=== PATIENT | female | born 1960 | race American Indian/Alaskan Native ===

== ENCOUNTER 2017-08-07 13:18 | Emergency (ER) | payer BC ==
[2017-08-07 13:43] VITALS: BP 173/92
--- NOTE | 2017-08-07 15:54 | Emergency Department Report ---
ED Eye Problem HPI - General Chief complaint: Eye Problems Stated complaint: PINK EYE Time Seen by Provider: 08/07/17 15:52 Source: patient Mode of arrival: Ambulatory Limitations: No Limitations - History of Present Illness Initial comments: 57-year-old female past medical history diabetes hypertension presents with complaint of left eye discomfort and irritation for approximately 4 days. Slight throbbing and discharge reported by patient with slightly blurry vision. Patient denies any direct trauma to left eye. Denies using contact lenses or glasses. Denies any fevers chills or any other symptoms. Denies nausea vomiting or headache. MD chief complaint: eye pain Onset/Timin -: days(s) Location: left eye Eye Symptoms: pain, discharge Severity: mild Severity scale (0 -10): 4 If Pain, Quality: throbbing Consistency: intermittent Associated Symptoms: none Treatments Prior to Arrival: none - Related Data Patient Tetanus UTD: Yes Previous Rx's Medication Instructions Recorded Last Taken Type Ibuprofen [Motrin] 800 mg PO Q8HR PRN #20 tablet 08/07/17 Unknown Rx Tobramycin 0.3% [Tobrex] 1 drop OS Q4H #1 bottle 08/07/17 Unknown Rx Allergies Allergy/AdvReac Type Severity Reaction Status Date / Time No Known Allergies Allergy Verified 08/07/17 13:39 ED Review of Systems ROS: Stated complaint: PINK EYE Other details as noted in HPI Constitutional: denies: chills, fever Eyes: eye pain. denies: eye discharge, vision change ENT: denies: ear pain, throat pain Respiratory: denies: cough, shortness of breath, wheezing Cardiovascular: denies: chest pain, palpitations Endocrine: no symptoms reported Gastrointestinal: denies: abdominal pain, nausea, diarrhea Genitourinary: denies: urgency, dysuria, discharge Musculoskeletal: denies: back pain, joint swelling, arthralgia Skin: denies: rash, lesions Neurological: denies: headache, weakness, paresthesias Psychiatric: denies: anxiety, depression Hematological/Lymphatic: denies: easy bleeding, easy bruising ED Past Medical Hx - Past Medical History Previous Medical History?: No - Surgical History Past Surgical History?: No - Social History Smoking Status: Never Smoker Substance Use Type: None - Medications Home Medications: Home Medications Medication Instructions Recorded Confirmed Last Taken Type Ibuprofen [Motrin] 800 mg PO Q8HR PRN #20 tablet 08/07/17 Unknown Rx Tobramycin 0.3% [Tobrex] 1 drop OS Q4H #1 bottle 08/07/17 Unknown Rx ED Physical Exam - General Limitations: No Limitations General appearance: alert, in no apparent distress - Head Head exam: Present: atraumatic, normocephalic - Eye Eye exam: Present: normal appearance, PERRL, EOMI - Expanded Eye Exam Expanded Pupils: Regular, Round: Bilateral, Reactive: Bilateral Sclera/Conjunctival: Normal Inspection: Right, Injection: Left Anterior chamber: Normal Inspection: Bilateral Visual acuity (R) = 20/: 30 Visual acuity (L) = 20/: 30 IOP (L) in mmH IOP measured with: Tonopen - ENT ENT exam: Present: mucous membranes moist - Neck Neck exam: Present: normal inspection - Respiratory Respiratory exam: Present: normal lung sounds bilaterally. Absent: respiratory distress - Cardiovascular Cardiovascular Exam: Present: regular rate, normal rhythm. Absent: systolic murmur, diastolic murmur, rubs, gallop - GI/Abdominal GI/Abdominal exam: Present: soft, normal bowel sounds - Extremities Exam Extremities exam: Present: normal inspection - Back Exam Back exam: Present: normal inspection - Neurological Exam Neurological exam: Present: alert, oriented X3 - Psychiatric Psychiatric exam: Present: normal affect, normal mood - Skin Skin exam: Present: warm, dry, intact, normal color. Absent: rash ED Course Vital Signs 08/07/17 13:40 Temperature 98.4 F Pulse Rate 74 Respiratory 16 Rate Blood Pressure 173/92 O2 Sat by Pulse 97 Oximetry ED Medical Decision Making - Medical Decision Making A/P: Conjunctivitis left eye 1-tobramycin drops, Motrin when necessary 2-follow-up with ophthalmology 3- acuity 20/30 both eyes, 20/30 left eye, 20/30 right eye. IOP 15 left eye Critical care attestation.: If time is entered above; I have spent that time in minutes in the direct care of this critically ill patient, excluding procedure time. ED Disposition Clinical Impression: Conjunctivitis Qualifiers: Conjunctivitis type: acute Acute conjunctivitis type: unspecified Laterality: left Qualified Code(s): H10.32 - Unspecified acute conjunctivitis, left eye Disposition: - TO HOME OR SELFCARE Is pt being admited?: No Does the pt Need Aspirin: No Condition: Stable Instructions: Conjunctivitis (ED) Prescriptions: Ibuprofen [Motrin] 800 mg PO Q8HR PRN #20 tablet PRN Reason: Pain Tobramycin 0.3% [Tobrex] 1 drop OS Q4H #1 bottle Referrals: ROSITA KUO MD [Primary Care Provider] - 3-5 Days HENRY ARNOLD DO [Staff Physician] - 3-5 Days CASI GALVIN MD [Staff Physician] - 3-5 Days Time of Disposition: 16:06
== END 2017-08-07 16:13 | disposition home or self-care (01) ==
LOC: ED 13:18
DX: H10.32 Unspecified acute conjunctivitis, left eye (principal); I10 Essential (primary) hypertension; E11.9 Type 2 diabetes mellitus without complications
CPT/HCPCS: 99282

== ENCOUNTER 2018-09-29 10:39 | Day surgery (SDC) | payer BC ==
[~2018-09-29 10:39] MED LIST: NACL 0.9% 1000 ML 1,000 ML IV SCH
[2018-09-29] MEDS ORDERED: XYLOCAINE MPF 2% ONE (11:00)
[2018-09-29] MEDS ORDERED: DIPRIVAN 10 MG/ML IV ONE ×2 (11:16)
[2018-09-29] MEDS ORDERED: WATER FOR IRRIG STERILE IR ONE (11:19)
--- NOTE | 2018-09-29 11:33 | Anesthesia Consultation ---
Anesthesia Consult and Med Hx Date of service: 09/29/18 - Airway Anesthetic Teeth Evaluation: Dentures (upper), Partials (bottom) ROM Head & Neck: Adequate Mental/Hyoid Distance: Adequate Mallampati Class: Class II Intubation Access Assessment: Probably Good - Pre-Operative Health Status ASA Pre-Surgery Classification: ASA3 - Pulmonary Hx Smoking: Yes - Cardiovascular System Hx Hypertension: Yes - Endocrine Hx Non-Insulin Dependent Diabetes: Yes - Other Systems Hx Obesity: Yes (BMI 34.5)
--- NOTE | 2018-09-29 11:34 | Anesthesia Day of Surgery ---
Anesthesia Day of Surgery - Day of Surgery Patient Examined: Yes Patient H&P Reviewed: Yes Patient is NPO: Yes
--- NOTE | 2018-09-29 12:03 | Post Operative Note ---
Date of procedure: 09/29/18 Pre-op diagnosis: Screening colonoscopy Post-op diagnosis: other (colon polyp, internal hemorrhoids) Findings: 1. small colon polyp 2. Internal hemorrhoids Procedure: Colonoscopy with biopsy Anesthesia: MAC Surgeon: DILEEP MORALES Estimated blood loss: minimal Pathology: list (transverse colon polyp) Specimen disposition: to lab Condition: stable Disposition: same day
--- NOTE | 2018-09-29 12:05 | Operative Report ---
Operative Report Operative Report: Colonoscopy Procedure Note with Biopsy Date of procedure: 09/29/2018 Endoscopist: Hipolito Garces Pre-op diagnosis: Screening for colorectal cancer Post-op diagnosis: Small colon polyp, internal hemorrhoids Anesthesia: MAC Complications: No immediate complications Estimated blood loss: minimal Procedure: After consent was obtained, the patient was placed in the left lateral decubitus position. The olympus colonoscope was inserted into the patient's rectum under direct vision, and advanced to the cecum without difficulty. The patient tolerated the procedure well. The views of the mucosa were good. The quality of prep was good. The patient's vital signs were monitored continuously throughout the procedure. Findings: There was an ~1-2 mm sessile polyp in the transverse colon. The polyp was removed and retrieved with cold biopsy forceps. Internal hemorrhoids were visualized on retro-flexion view. Otherwise, the colon appeared normal. Impression: 1. Small colon polyp removed with cold biopsy forceps 2. Internal hemorrhoids Recommendations: -follow-up pathology -repeat colonoscopy for surveillance in 5 years
--- NOTE | 2018-09-29 12:34 | Short Stay Summary ---
Short Stay Documentation Date of service: 09/29/18 Narrative H&P: The patient presents for screening colonoscopy. Denies lower gi complaints at this time. - History Past Medical History: other (no changes from clinic H&P) Past Surgical History: Other (no changes) Social history: no significant social history - Allergies and Medications Current Medications: Allergies No Known Allergies Allergy (Verified 08/07/17 13:39) Home Medications Medication Instructions Recorded Confirmed Last Taken Type Vitamin D2 50,000 units PO DAILY 09/27/18 09/29/18 09/27/18 History amLODIPine 10 mg PO DAILY 09/27/18 09/29/18 09/29/18 History metFORMIN 1,000 mg PO BID 09/27/18 09/29/18 09/28/18 History Active Medications Sodium Chloride (Nacl 0.9% 1000 Ml) 1,000 mls @ 50 mls/hr IV DIRECT LU Last Admin: 09/29/18 11:32 Dose: 50 mls/hr Documented by: - Physical exam General appearance: no acute distress Heart: Regular rate, Normal S1, Normal S2 Gastrointestinal: normal Extremities: No edema, Full ROM - Brief post op/procedure progress note Date of procedure: 09/29/18 Pre-op diagnosis: screening colonscopy Post-op diagnosis: other (colon polyp) Procedure: colonoscopy with biopsy Anesthesia: MAC Findings: 1. colon polyp x 1 Estimated blood loss: minimal Pathology: list (transverse colon polyp) Specimen disposition: to lab Condition: stable - Disposition Condition at discharge: Good Disposition: DC-01 TO HOME OR SELFCARE Short Stay Discharge Plan Follow up with: AMANDA ENCISO MD [Primary Care Provider] - 7 Days
[2018-09-29 12:58] VITALS: BP 137/69
== END 2018-09-29 10:40 | disposition home or self-care (01) ==
LOC: GIO 10:39
PROVIDERS: ATTEND Internal Medicine Gastroenterology
DX: Z12.11 Encounter for screening for malignant neoplasm of colon (principal); K63.5 Polyp of colon; K63.89 Other specified diseases of intestine; K64.8 Other hemorrhoids; F17.210 Nicotine dependence, cigarettes, uncomplicated; I10 Essential (primary) hypertension; E11.9 Type 2 diabetes mellitus without complications; E66.9 Obesity, unspecified; Z98.51 Tubal ligation status; Z79.84 Long term (current) use of oral hypoglycemic drugs; Z98.890 Other specified postprocedural states
CPT/HCPCS: 45380; 82962; 88305; J2704; J7030

== ENCOUNTER 2018-11-28 16:37 | Emergency (ER) | payer BC ==
--- NOTE | 2018-11-28 16:45 | Event Note ---
ED Screening Note Date of service: 11/28/18 Time: 16:43 ED Screening Note: 58 y o f presents with right thumb swelling and pain x 1 week states getting worse This initial assessment/diagnostic orders/clinical plan/treatment(s) is/are subject to change based on patients health status, clinical progression and re- assessment by fellow clinical providers in the ED. Further treatment and workup at subsequent clinical providers discretion. Patient/guardian urged not to elope from the ED as their condition may be serious if not clinically assessed and managed. Initial orders include: I &D ACC eval
[2018-11-28] MEDS ORDERED: NACL 0.9% IR ONE (18:06)
[2018-11-28] MEDS ORDERED: CLEOCIN PO ONE (18:06)
[2018-11-28] MEDS ORDERED: XYLOCAINE 1% MPF 5 mL INFILTRATI ONE (18:06)
[2018-11-28] MEDS ORDERED: NORCO 5/325 PO ONE (18:06)
--- NOTE | 2018-11-28 18:06 | Emergency Department Report ---
Abscess Boil HPI - HPI Chief Complaint: Extremity Problem,Nontraumatic Stated Complaint: RT/LFT THUMB SWELLING/PAIN Time Seen by Provider: 11/28/18 16:42 Duration: 2 Days Location: Upper Extremity (right thumb) Severity: Severe History: Yes Pain (N/10 pain to right thumb distally), No Fever, No Purulent Drainage, No Numbness, No Foreign Body, No Previous History, No Insect Bite HPI: 58-year-old female presented to the emergency room report that she has right thumb swelling redness and pain 2 days. Pain 10/10 and throbbing and achy. Denies any injury. Pain is worse with movement better with resting. Denies any fever or chills. Denies similar incident. Denies any nausea. Pain is localized to the thumb distal to proximal Home Medications: Home Medications Medication Instructions Recorded Confirmed Last Taken Vitamin D2 50,000 units PO DAILY 09/27/18 09/29/18 09/27/18 amLODIPine 10 mg PO DAILY 09/27/18 09/29/18 09/29/18 metFORMIN 1,000 mg PO BID 09/27/18 09/29/18 09/28/18 Previous Rx's Medication Instructions Recorded Last Taken Type Acetaminophen/Codeine [Tylenol 1 tab PO Q6H PRN #12 tab 11/28/18 Unknown Rx /Codeine # 3 tab] Clindamycin [Clindamycin CAP] 300 mg PO Q8H 10 Days #30 cap 11/28/18 Unknown Rx Allergies/Adverse Reactions: Allergies Allergy/AdvReac Type Severity Reaction Status Date / Time No Known Allergies Allergy Verified 08/07/17 13:39 ED Review of Systems ROS: Stated complaint: RT/LFT THUMB SWELLING/PAIN Other details as noted in HPI Constitutional: denies: chills, fever Respiratory: denies: cough, shortness of breath, wheezing Cardiovascular: denies: chest pain, palpitations, edema, syncope Gastrointestinal: denies: nausea, vomiting Skin: other (pain, redness and swelling to the right thumb) Neurological: denies: headache, numbness, paresthesias, abnormal gait, vertigo ED Past Medical Hx - Past Medical History Previous Medical History?: Yes Hx Hypertension: Yes Hx Diabetes: Yes - Surgical History Past Surgical History?: No - Family History Family history: diabetes, hypertension - Social History Smoking Status: Never Smoker Substance Use Type: None - Medications Home Medications: Home Medications Medication Instructions Recorded Confirmed Last Taken Type Vitamin D2 50,000 units PO DAILY 09/27/18 09/29/18 09/27/18 History amLODIPine 10 mg PO DAILY 09/27/18 09/29/18 09/29/18 History metFORMIN 1,000 mg PO BID 09/27/18 09/29/18 09/28/18 History Acetaminophen/Codeine [Tylenol 1 tab PO Q6H PRN #12 tab 11/28/18 Unknown Rx /Codeine # 3 tab] Clindamycin [Clindamycin CAP] 300 mg PO Q8H 10 Days #30 cap 11/28/18 Unknown Rx ED Abscess Boil Physical Exam - Exam General: Vital signs noted. No distress. Alert and acting appropriately. 58-year-old female well-nourished well-developed in no acute distress Front/Back of Body, Lg (Color): 1 - Right thumb distally with redness swelling, tenderness to palpate. Nailbed normal findings with normal capillary refill. Redness extending down to proximal thumb Size: 1 cm Exam: Yes Tenderness (right thumb around nailbed), Yes Fluctuance, Yes Surrounding Cellulites/Erythema, Yes Normal Neurologic Exam (no motor or sensory deficit. No focal deficit), Yes Normal Circulation (clubbing, cyanosis or edema. +2 radial ulnar pulses except patient with swelling, redness and pain to right thumb), No Lymphangitis, No Crepitation, No Heart Murmur (normal exam) Exam: SKIN: Patient redness, swelling, tenderness to palpate the right thumb. Redness extending right thumb. MSK: No tenderness to hand wrist or forearm and she has full range of motion. No deformity noted I & D Note - I & D Note I & D Note: Incision and drainage procedure. Patient right thumb incision and drained noted small amount of serosanguineous drainage from ear. Procedure done under sterile procedure. Area preprocedure tense with iodine and normal saline, 3 mL of 1% lidocaine injected around site. #7 blade scalpel used to make small incision. Patient tolerated procedure well. Area cleansed with normal saline. Her tetanus vaccine is up-to-date per patient. She said less than one year. Sterile dry dressing placed the site. ED Course Vital Signs 11/28/18 16:39 Temperature 98.4 F Pulse Rate 77 Respiratory 16 Rate Blood Pressure 155/77 O2 Sat by Pulse 98 Oximetry - Reevaluation(s) Reevaluation #1: 11/28/18 19:50 Patient with Paronychia which was drained. Please refer to procedure note for details. He was given [place] 5/325 2 tablets by mouth in emergency room for pain. She was also started on clindamycin. Pain is controlled and she tolerated procedure well. Critical care attestation.: If time is entered above; I have spent that time in minutes in the direct care of this critically ill patient, excluding procedure time. ED Medical Decision Making - Medical Decision Making 58-year-old female presents to the emergency room with right thumb swelling and pain and redness for 2 days. She was found to have Paronychia to right thumb. He is referred her procedure note for incision and drainage. She was given pain medication and started on antibiotic. Patient discharged home with her family member in stable condition with prescription for clindamycin and Tylenol No. 3 and to follow up with her primary care physician in 2-3 days and if her condition worsens to return to the emergency room. She voiced understanding. ED Disposition Clinical Impression: Paronychia, Encounter for incision and drainage procedure Disposition: TO HOME OR SELFCARE Is pt being admited?: No Does the pt Need Aspirin: No Condition: Stable Instructions: Paronychia (ED), Incision and Drainage (ED) Additional Instructions: Please apply warm compresses to affected area 2-3 times a day to facilitate drainage. Keep Affected area clean and dry If right thumb infection becomes worse to include increasing redness, decrease in movement, if you develop fever and chill and redness extending to hand and beyond please return to emergency room [facility] otherwise follow-up with the primary care physician in 2 days. Take Antibiotic as prescribed do not drive or operate heavy machinery while taking Tylenol No. 3 as this med ication causes drowsiness Referrals: PRIMARY CAREMD [Primary Care Provider] - 11/30/18 Forms: Work/School Release Form(ED)
[2018-11-28 20:23] VITALS: BP 134/76
== END 2018-11-28 20:30 | disposition home or self-care (01) ==
LOC: ED 16:37
DX: L03.011 Cellulitis of right finger (principal); I10 Essential (primary) hypertension; E11.9 Type 2 diabetes mellitus without complications; Z79.899 Other long term (current) drug therapy; Z79.84 Long term (current) use of oral hypoglycemic drugs

== ENCOUNTER 2019-09-01 15:29 | Outpatient (CLI) | payer BC ==
--- NOTE | 2019-09-01 17:11 | XRay Report ---
HISTORY:BILATERAL FOOT PAIN COMPARISON: None. TECHNIQUE: AP lateral and obliques views of both feet were obtained FINDINGS: Bones: No fracture or dislocation. Joint spaces: Maintained. Soft tissues: No significant abnormality. Additional findings: None. IMPRESSION: 1. No significant abnormality. Signer Name: Jaspreet Mireles MD Signed: 09/01/2019 5:07 PM Workstation Name: [id number]
== END 2019-09-01 15:30 | disposition home or self-care (01) ==
LOC: XRAY 15:29
PROVIDERS: ATTEND Podiatrist Foot & Ankle Surgery
DX: S92.356A Nondisplaced fracture of fifth metatarsal bone, unspecified foot, initial encounter for closed fracture (principal); X58.XXXA Exposure to other specified factors, initial encounter; Y93.89 Activity, other specified; Y92.89 Other specified places as the place of occurrence of the external cause; Y99.8 Other external cause status

== ENCOUNTER 2020-09-13 23:19 | Emergency (ER) | payer BC ==
[2020-09-14 00:20] VITALS: BP 131/70
[2020-09-14] MEDS ORDERED: HYDROcodone/ACETAMINOPHEN 10-325MG TAB PO ONE (01:49)
[2020-09-14 02:38] LABS: Basophils # (Auto) 0.1 K/mm3 (0.0-0.1); Basophils % (Auto) 0.6 % (0.0-1.8); Eosinophils # (Auto) 0.1 K/mm3 (0.0-0.4); Eosinophils % (Auto) 1.1 % (0.0-4.3); Hematocrit 36.2 % (30.3-42.9); Hemoglobin 12.2 gm/dl (10.1-14.3); Lymphocytes # (Auto) 3.4 K/mm3 (1.2-5.4); Lymphocytes % (Auto) 35.2 % (13.4-35.0); Mean Corpuscular HGB Conc 34 % (30-34); Mean Corpuscular Volume 85 fl (79-97); Monocytes # (Auto) 0.7 K/mm3 (0.0-0.8); Monocytes % (Auto) 7.6 % (0.0-7.3); Platelet Count 269 K/mm3 (140-440); Red Blood Count 4.29 M/mm3 (3.65-5.03); Red Cell Distribution Width 13.8 % (13.2-15.2)
--- NOTE | 2020-09-14 02:51 | Vascular Lab Report ---
Bilateral lower extremity Doppler venous ultrasound INDICATION: Pain FINDINGS: Bilateral common femoral veins, superficial femoral veins and popliteal veins have normal c ompressibility and phasic flow. IMPRESSION: No evidence for DVT. Signer Name: Arnie Valverde MD Signed: 09/14/2020 2:46 AM Workstation Name: [id number]
[2020-09-14 03:05] LABS: Alanine Aminotransferase 11 units/L (7-56); Albumin 4.7 g/dL (3.9-5); Blood Urea Nitrogen 13 mg/dL (7-17); Calcium 10.1 mg/dL (8.4-10.2); Hemolysis Index 5
[2020-09-14 03:06] LABS: Bilirubin,Urine NEG (Negative); Blood,Urine SM (Negative); Color,Urine Yellow (Yellow); Mucus,Urine FEW /HPF; Protein,Urine <15 mg/dL mg/dL (Negative); Urobilinogen,Urine < 2.0 mg/dL (<2.0)
[2020-09-14 03:06] LABS: BUN/Creatinine Ratio 19
[2020-09-14] MEDS ORDERED: LIDOCAINE-MPF (1%) 10 MG/1 ML VIAL 5 ML INFILTRATI ONE (03:41)
--- NOTE | 2020-09-14 04:06 | Emergency Department Report ---
ED General Adult HPI - General Chief complaint: Extremity Injury, Upper Stated complaint: ARM/LEG PAIN Time Seen by Provider: 09/14/20 01:46 Source: patient Mode of arrival: Ambulatory Limitations: No Limitations - History of Present Illness Initial comments: This is a 60-year-old female nontoxic, well nourished in appearance, no acute signs of distress presents to the ED with c/o of upper and lower extremities bilateral pain and cramping sensation. Currently patient denies any upper extremity symptoms or conditions as she stated symptoms has resolved few days ago. Patient stated she is mostly concerned about her bilateral lower extremities. Patient stated that the past 3 days she has bilateral lower leg pains primarily in the calf muscle area. Patient describes it as " charley horse". Patient otherwise denies any trauma or injuries. Patient denies any radiation. 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 Patient denies any fever, chills, nausea, vomiting, headache, stiff neck, abdominal pain, back pain. Patient denies any other complaints or symptoms. Denies any allergies. -: days(s) Location: left, right, upper extremity, lower extremity Radiation: non-radiation Severity scale (0 -10): 3 Quality: other (cramping) Consistency: constant Improves with: none Worsens with: none Associated Symptoms: denies other symptoms. denies: confusion, chest pain, cough, diaphoresis, fever/chills, headaches, loss of appetite, malaise, n ausea/vomiting, rash, seizure, shortness of breath, syncope, weakness Treatments Prior to Arrival: none - Related Data Home Medications Medication Instructions Recorded Confirmed Last Taken Vitamin D2 50,000 units PO DAILY 09/27/18 09/29/18 09/27/18 amLODIPine 10 mg PO DAILY 09/27/18 09/29/18 09/29/18 metFORMIN 1,000 mg PO BID 09/27/18 09/29/18 09/28/18 Previous Rx's Medication Instructions Recorded Last Taken Type Acetaminophen/Codeine [Tylenol 1 tab PO Q6H PRN #12 tab 11/28/18 Unknown Rx /Codeine # 3 tab] Clindamycin [Clindamycin CAP] 300 mg PO Q8H 10 Days #30 cap 11/28/18 Unknown Rx Cyclobenzaprine [Flexeril] 10 mg PO QHS PRN #10 tablet 09/14/20 Unknown Rx Naproxen 500 mg PO Q12H PRN #12 tablet 09/14/20 Unknown Rx Sulfamethoxazole/Trimethoprim 1 each PO BID #20 tablet 09/14/20 Unknown Rx [Bactrim DS TAB] Allergies Allergy/AdvReac Type Severity Reaction Status Date / Time No Known Allergies Allergy Verified 08/07/17 13:39 ED Review of Systems ROS: Stated complaint: ARM/LEG PAIN Other details as noted in HPI Comment: All other systems reviewed and negative Constitutional: denies: chills, fever Eyes: denies: eye pain, eye discharge, vision change ENT: denies: ear pain, throat pain Respiratory: denies: cough, shortness of breath, wheezing Cardiovascular: denies: chest pain, palpitations Endocrine: no symptoms reported Gastrointestinal: denies: abdominal pain, nausea, diarrhea Genitourinary: denies: urgency, dysuria, discharge Musculoskeletal: denies: back pain, joint swelling, arthralgia Skin: denies: rash, lesions Neurological: denies: headache, weakness, paresthesias Psychiatric: denies: anxiety, depression Hematological/Lymphatic: denies: easy bleeding, easy bruising ED Past Medical Hx - Past Medical History Previous Medical History?: Yes Hx Hypertension: Yes Hx Diabetes: Yes - Surgical History Past Surgical History?: No - Social History Smoking Status: Current Every Day Smoker Substance Use Type: None - Medications Home Medications: Home Medications Medication Instructions Recorded Confirmed Last Taken Type Vitamin D2 50,000 units PO DAILY 09/27/18 09/29/18 09/27/18 History amLODIPine 10 mg PO DAILY 09/27/18 09/29/18 09/29/18 History metFORMIN 1,000 mg PO BID 09/27/18 09/29/18 09/28/18 History Acetaminophen/Codeine [Tylenol 1 tab PO Q6H PRN #12 tab 11/28/18 Unknown Rx /Codeine # 3 tab] Clindamycin [Clindamycin CAP] 300 mg PO Q8H 10 Days #30 cap 11/28/18 Unknown Rx Cyclobenzaprine [Flexeril] 10 mg PO QHS PRN #10 tablet 09/14/20 Unknown Rx Naproxen 500 mg PO Q12H PRN #12 tablet 09/14/20 Unknown Rx Sulfamethoxazole/Trimethoprim 1 each PO BID #20 tablet 09/14/20 Unknown Rx [Bactrim DS TAB] ED Physical Exam - General Limitations: No Limitations General appearance: alert, in no apparent distress - Head Head exam: Present: atraumatic, normocephalic - Eye Eye exam: Present: normal appearance - Neck Neck exam: Present: normal inspection, full ROM. Absent: tenderness, meningismus, lymphadenopathy - Respiratory Respiratory exam: Present: normal lung sounds bilaterally. Absent: respiratory distress, wheezes, rales, rhonchi, chest wall tenderness, accessory muscle use, decreased breath sounds, prolonged expiratory - Cardiovascular Cardiovascular Exam: Present: regular rate, normal rhythm, normal heart sounds. Absent: bradycardia, tachycardia, irregular rhythm, systolic murmur, diastolic murmur, rubs, gallop - GI/Abdominal GI/Abdominal exam: Present: soft, normal bowel sounds. Absent: distended, tenderness, guarding, rebound, rigid, diminished bowel sounds - Extremities Exam Extremities exam: Present: normal inspection, full ROM, tenderness, normal capillary refill, calf tenderness. Absent: pedal edema, joint swelling - Expanded Lower Extremity Exam Left Hip exam: Present: normal inspection (Bilateral exam), full ROM (Bilateral exam). Absent: tenderness (Bilateral exam), swelling (Bilateral exam) Upper Leg exam: Present: normal inspection (Bilateral exam), full ROM (Bilateral exam). Absent: tenderness, swelling Knee exam: Present: normal inspection (Bilateral exam), full ROM (Bilateral exam). Absent: tenderness (Bilateral exam), swelling (Bilateral exam) Lower Leg exam: Present: normal inspection (Bilateral exam), full ROM (Bilateral exam), tenderness (Bilateral exam). Absent: swelling (Bilateral exam), abrasion (Bilateral exam), laceration (Bilateral exam), ecchymosis (Bilateral exam), deformity (Bilateral exam), crepidus (Bilateral exam), dislocation (Bilateral exam), erythema (Bilateral exam), palpable cord (Bilateral exam), Tara's sign (Bilateral exam) Ankle exam: Present: normal inspection (Bilateral exam), full ROM (Bilateral exam). Absent: tenderness (Bilateral exam), swelling (Bilateral exam) Foot/Toe exam: Present: normal inspection (Bilateral exam), full ROM (Bilateral exam). Absent: tenderness (Bilateral exam), swelling (Bilateral exam) Neuro vascular tendon exam: Present: no vascular compromise (Bilateral exam) Gait: Positive: observed and normal - Back Exam Back exam: Present: normal inspection, full ROM. Absent: tenderness, CVA tenderness (R), CVA tenderness (L), muscle spasm, paraspinal tenderness, vertebral tenderness, rash noted - Neurological Exam Neurological exam: Present: alert, oriented X3, normal gait - Psychiatric Psychiatric exam: Present: normal affect, normal mood - Skin Skin exam: Present: warm, dry, intact, normal color. Absent: rash ED Course Vital Signs 09/14/20 00:16 Temperature 98.0 F Pulse Rate 65 Respiratory 18 Rate Blood Pressure 131/70 O2 Sat by Pulse 98 Oximetry - Reevaluation(s) Reevaluation #1: 09/14/20 04:04 Patient is speaking in full sentences with no signs of distress noted. ED Medical Decision Making - Lab Data Result diagrams: 09/14/20 01:59 09/14/20 01:59 Lab Results 09/14/20 09/14/20 09/14/20 Range/Units 01:59 01:59 Unknown WBC 9.5 (4.5-11.0) K/mm3 RBC 4.29 (3.65-5.03) M/mm3 Hgb 12.2 (10.1-14.3) gm/dl Hct 36.2 (30.3-42.9) % MCV 85 (79-97) fl MCH 28 (28-32) pg MCHC 34 (30-34) % RDW 13.8 (13.2-15.2) % Plt Count 269 (140-440) K/mm3 Lymph % (Auto) 35.2 H (13.4-35.0) % Scott % (Auto) 7.6 H (0.0-7.3) % Eos % (Auto) 1.1 (0.0-4.3) % Baso % (Auto) 0.6 (0.0-1.8) % Lymph # (Auto) 3.4 (1.2-5.4) K/mm3 Scott # (Auto) 0.7 (0.0-0.8) K/mm3 Eos # (Auto) 0.1 (0.0-0.4) K/mm3 Baso # (Auto) 0.1 (0.0-0.1) K/mm3 Seg Neutrophils % 55.5 (40.0-70.0) % Seg Neutrophils # 5.3 (1.8-7.7) K/mm3 Sodium 137 (137-145) mmol/L Potassium 4.2 (3.6-5.0) mmol/L Chloride 101.9 (98-107) mmol/L Carbon Dioxide 25 (22-30) mmol/L Anion Gap 14 mmol/L BUN 13 (7-17) mg/dL Creatinine 0.7 (0.6-1.2) mg/dL Estimated GFR > 60 ml/min BUN/Creatinine Ratio 19 % Glucose 137 H (65-100) mg/dL Calcium 10.1 (8.4-10.2) mg/dL Total Bilirubin < 0.20 (0.1-1.2) mg/dL AST 13 (5-40) units/L ALT 11 (7-56) units/L Alkaline Phosphatase 77 (35-129) units/L Total Creatine Kinase 199 H (30-135) units/L Total Protein 7.1 (6.3-8.2) g/dL Albumin 4.7 (3.9-5) g/dL Albumin/Globulin Ratio 2.0 % Urine Color Yellow (Yellow) Urine Turbidity Clear (Clear) Urine pH 5.0 (5.0-7.0) Ur Specific [place] 1.015 (1.003-1.030) Urine Protein <15 mg/dl (Negative) mg/dL Urine Glucose (UA) Neg (Negative) mg/dL Urine Ketones Neg (Negative) mg/dL Urine Blood Sm (Negative) Urine Nitrite Neg (Negative) Urine Bilirubin Neg (Negative) Urine Urobilinogen < 2.0 (<2.0) mg/dL Ur Leukocyte Esterase Lg (Negative) Urine WBC (Auto) 65.0 H (0.0-6.0) /HPF Urine RBC (Auto) 5.0 (0.0-6.0) /HPF U Epithel Cells (Auto) 1.0 (0-13.0) /HPF Urine Mucus Few /HPF - Radiology Data Bilateral lower extremity Doppler venous ultrasound INDICATION: Pain FINDINGS: Bilateral common femoral veins, superficial femoral veins and popliteal veins have normal compressibility and phasic flow. IMPRESSION: No evidence for DVT. Signer Name: Arnie Valverde MD Signed: 09/14/2020 1:46 AM Workstation Name: [id number] - Medical Decision Making This is a 60-year-old female that presents with UTI and muscle strains. Patient is stable and was examined by me. Patient received [place] for pain which stated symptoms has resolved and subsided. Patient also received Rocephin IM and will be be discharged with Bactrim. Vital signs are stable prior to discharge. Doppler ultrasound negative for DVTs bilaterally. Patient is notified of the labs and ultrasound report with no questions noted by the patient. Patient was instructed to follow-up with a primary care doctor in 3-5 days or if symptoms worsen and continue return to emergency room as soon as possible. At time of discharge, the patient does not seem toxic or ill in appearance. No acute signs of distress noted. Patient agrees to discharge treatment plan of care. No further questions noted by the patient. Critical care attestation.: If time is entered above; I have spent that time in minutes in the direct care of this critically ill patient, excluding procedure time. ED Disposition Clinical Impression: Muscle spasm of both lower legs UTI (urinary tract infection) Qualifiers: Urinary tract infection type: acute cystitis Hematuria presence: without hematuria Qualified Code(s): N30.00 - Acute cystitis without hematuria Disposition: TO HOME OR SELFCARE Is pt being admited?: No Does the pt Need Aspirin: No Condition: Stable Instructions: Muscle Cramps and Spasms, [id number], Cyclobenzaprine tablets, Urinary Tract Infection, Adult, [id number] Additional Instructions: Follow-up with a primary care doctor in 3-5 days or if symptoms worsen and continue return to emergency room as soon as possible. Take naproxen and Flexeril as prescribed. Do not operate heavy machinery while taking Flexeril due to sedation Prescriptions: Cyclobenzaprine [Flexeril] 10 mg PO QHS PRN #10 tablet PRN Reason: Muscle Spasm Sulfamethoxazole/Trimethoprim [Bactrim DS TAB] 1 each PO BID #20 tablet Naproxen 500 mg PO Q12H PRN #12 tablet PRN Reason: Pain , Severe (7-10) Referrals: PRIMARY CAREMD [Primary Care Provider] - 3-5 Days RENAY HE MD [Staff Physician] - 3-5 Days Forms: Work/School Release Form(ED) Time of Disposition: 04:07
== END 2020-09-14 04:30 | disposition home or self-care (01) ==
LOC: ED 23:19
DX: N39.0 Urinary tract infection, site not specified (principal); M62.838 Other muscle spasm; I10 Essential (primary) hypertension; E11.9 Type 2 diabetes mellitus without complications; F17.200 Nicotine dependence, unspecified, uncomplicated; Z79.899 Other long term (current) drug therapy
CPT/HCPCS: 36415; 80053; 81001; 82550; 85025; 87086; 93970; 96372; 99284; J0696